=== PATIENT | female | born 1970 | race Caucasian/White ===

== ENCOUNTER 2016-03-09 06:39 | Emergency (ER) | payer BC ==
[~2016-03-09] VITALS: Ht 162.6 cm; Wt 86.5 kg
[2016-03-09 07:18] LABS: POINT-OF-CARE METER ID UU13113747
[2016-03-09 07:46] LABS: EOSINOPHIL COUNT 0.1 K/uL (0-0.3); HEMATOCRIT 38.1 % (36.0-46.0); IMMATURE GRANULOCYTE (%) 0.5 % (0.0-0.7); IMMATURE GRANULOCYTE COUNT 0.4 K/uL; MCH 31.5 PG (29.0-34.0); MCHC 35.2 G/DL (30.0-36.0); MCV 89.6 FL (83-99); MONOCYTE COUNT 0.7 K/uL (0-0.8); NEUTROPHIL (%) 78.3 % (45-76); NEUTROPHIL COUNT 6.4 K/uL (1.8-6.4); PLATELET COUNT 357 K/uL (156-360); RBC DIS.WIDTH-CV 12.5 % (11.8-14.6); RBC DIS.WIDTH-SD 40.3 % (39-53); RED BLOOD COUNT 4.25 M/uL (3.80-5.20); WHITE BLOOD COUNT 8.1 K/uL (4.1-10.2)
[2016-03-09 07:58] LABS: D-DIMER ELISA < 0.15 mg/L FEU (< 0.57)
[2016-03-09 08:10] LABS: ANION GAP 11 MEQ/L (2-14); CHLORIDE 106 MEQ/L (99-109); POTASSIUM 3.7 MEQ/L (3.7-5.4); SAMPLE HEMOLYSIS CHECK 0; SAMPLE ICTERIC CHECK 0; SAMPLE LIPEMIA CHECK 0; SODIUM 139 MEQ/L (136-147); TOTAL BILIRUBIN 0.3 MG/DL (0.0-1.0)
[2016-03-09 08:16] LABS: ALKALINE PHOSPHATASE 64 IU/L (3-129); GFR ESTIMATE (CALCULATED) > 59 mL/min/; GLUCOSE 95 mg/dL (70-99); UREA NITROGEN (BUN) 9 mg/dL (9-23)
[2016-03-09 09:16] LABS: TROP-I INTERPRETATION NEGATIVE; TROPONIN-I < 0.01 ng/mL (0.0-0.30)
[2016-03-09 10:01] VITALS: BP 146/90
[2016-03-09] MEDS ORDERED: PROPRANOLOL HCL10 MG PO (10:17)
== END 2016-03-09 11:04 | disposition home or self-care (01) ==
LOC: EME 06:39
PROVIDERS: Emergency Medicine
DX: R00.2 Palpitations (principal); E05.90 Thyrotoxicosis, unspecified without thyrotoxic crisis or storm; I10 Essential (primary) hypertension
CPT/HCPCS: 71010; 80053; 82948; 84439; 84443; 84481; 84484; 85025; 85379; 93005; 99281; 99285; J7030

== ENCOUNTER → 2016-05-03 | Outpatient (CLI) | payer BC ==
[~2016-05-03] VITALS: Ht 162.6 cm; Wt 85.0 kg
[~2016-05-03] MED LIST: INDERAL10 MG PO; LEXAPRO10 MG PO; PROPRANOLOL HCL10 MG PO
[2016-05-03 07:27] VITALS: BP 143/90
== END | disposition home or self-care (01) ==
LOC: IVINF 04-22 07:00
PROVIDERS: Internal Medicine Endocrinology, Diabetes & Metabolism
DX: E05.90 Thyrotoxicosis, unspecified without thyrotoxic crisis or storm (principal)
CPT/HCPCS: 80400; 82024 90; 82533 91; 96374; J0834

== ENCOUNTER → 2016-05-10 | Outpatient (CLI) | payer BC | END | disposition home or self-care (01) | LOC: NUC 07:45 | DX: E05.20 Thyrotoxicosis with toxic multinodular goiter without thyrotoxic crisis or storm (principal); R00.0 Tachycardia, unspecified; R79.89 Other specified abnormal findings of blood chemistry | CPT/HCPCS: 78014; 78999; A9512; A9531 ==

== ENCOUNTER → 2016-08-02 | Outpatient (CLI) | payer BC | END | disposition home or self-care (01) | LOC: NUC 09:05 | DX: E05.10 Thyrotoxicosis with toxic single thyroid nodule without thyrotoxic crisis or storm (principal) | CPT/HCPCS: 79005; A9517 ==

== ENCOUNTER 2017-09-08 18:15 | Emergency (ER) | payer BC ==
[~2017-09-08] VITALS: Ht 162.6 cm; Wt 92.0 kg
[2017-09-08] MEDS ORDERED: NAPROSYN500 MG PO (19:27)
[2017-09-08] MEDS ORDERED: VIBRAMYCIN100 MG PO (19:27)
[2017-09-08 19:47] VITALS: BP 161/99
== END 2017-09-08 19:48 | disposition home or self-care (01) ==
LOC: EME 18:15
DX: N63.20 Unspecified lump in the left breast, unspecified quadrant (principal); N61.1 Abscess of the breast and nipple; F17.200 Nicotine dependence, unspecified, uncomplicated
CPT/HCPCS: 99281; 99283